=== PATIENT | male | born 1985 | race Caucasian/White ===

== ENCOUNTER 2023-11-27 10:32 | Outpatient (CLI) | payer MEDICAID, SELFPAY ==
[2023-11-27 08:37] LABS: Abs Immature Grans 0.02 10^3/uL (0.0-0.06); Absolute Basophil Count 0.02 10^3/uL (0.0-0.2); Absolute Lymphocyte Count 2.58 10^3/uL (1.2-3.4); Absolute Neutrophil Count 3.55 10^3/uL (1.2-6.7); Basophils % 0.3 %; Eosinophils % 1.5 %; HCT 43.5 % (40.0-50.0); HGB 15.5 g/dL (13.5-17.5); Immature Grans % 0.3 %; Lymphocytes % 38.7 %; MCH 30.2 pg (27.0-33.0); MCHC 35.6 % (32.0-36.0); MCV 85 fL (80-95); MPV 10.1 fL (8.0-11.0); Neutrophils % 53.2 %; Platelet Count 195 10^3/uL (130-400); RBC 5.14 10^6/uL (4.36-5.78); RDW 12.6 % (11.8-14.1); WBC 6.67 10^3/uL (4.4-10.8)
[2023-11-27 09:29] LABS: ALT 23 U/L (16-63); AST 19 U/L (15-37); Albumin 4.1 g/dL (3.4-5.0); Alkaline Phosphatase 59 U/L (46-116); Anion Gap 4.4 mmol/L (3-11); BUN 18 mg/dL (7-18); Bilirubin, Total 0.92 mg/dL (0.2-1.0); CO2 31.6 mmol/L (21.0-32.0); CREATININE 1.1 mg/dL (0.70-1.30); Calcium 8.7 mg/dL (8.5-10.1); Calculated LDL 88 mg/dL (<100); Chloride 105 mmol/L (98-107); Cholesterol 161 mg/dL (<200); Estimated GFR 89.22 (mL/min/1.73m2); Ferritin 275 ng/mL (26-388); Glucose 93 mg/dL (74-106); HDL Cholesterol 68 mg/dL (40-60); Sodium 141 mmol/L (136-145); TSH 1.15 uIU/Ml (0.36-3.74); Total Protein 7.2 g/dL (6.4-8.2); Triglyceride 27 mg/dL (<150); Vitamin B12 1099 pg/mL (193-986)
[2023-12-04 13:48] LABS: Testosterone, Free 22.7 ng/dL (4.65-18.1); Testosterone, Total 701 ng/dL (240-950)
== END 2023-11-27 10:33 | disposition home or self-care (01) ==
LOC: LBO 10:36
PROVIDERS: PCP Naturopath; Visit Provider Naturopath
DX: D51.9 Vitamin B12 deficiency anemia, unspecified (principal); Z00.00 Encounter for general adult medical examination without abnormal findings; Z13.29 Encounter for screening for other suspected endocrine disorder; Z13.220 Encounter for screening for lipoid disorders; Z13.228 Encounter for screening for other metabolic disorders; Z13.0 Encounter for screening for diseases of the blood and blood-forming organs and certain disorders involving the immune mechanism
CPT/HCPCS: 36415; 80053; 80061; 84402; 84403; 82607; 82728; 84443; 85025